=== PATIENT | female | born 1955 | race Caucasian/White ===

== ENCOUNTER 2017-02-08 10:34 | Outpatient (CLI) | payer OTHER ==
--- NOTE | 2017-02-11 09:11 | DIAGNOSTIC IMAGING REPORT ---
PROCEDURE: MG BILATERAL SCREENING W/CAD INDICATION: SCREENING, aunt with a history of breast cancer . TECHNIQUE: Bilateral CC and MLO digital views. COMPARISON: Mammograms 06/03/2014, 10/04/2007 and 02/18/2005. FINDINGS: Computer-aided detection applied. Mildly dense. Scattered dystrophic calcifications. No change. IMPRESSION: 1. Negative mammogram RESULT CODE: 1- Negative. A. A negative report should not delay biopsy if a dominant or clinically suspicious mass is present. 10-15% of cancers are not identified by x-ray. B. A negative report may reinforce clinical impression. C. Adenosis and dense breasts may obscure an underlying neoplasm. D. False positive reports average 6-10%. E.. A yearly screening mammogram is recommended. A reminder letter will be scheduled.
== END 2017-02-08 23:00 ==
LOC: MAM SRH 10:34
DX: Z12.31 Encounter for screening mammogram for malignant neoplasm of breast (principal); Z80.3 Family history of malignant neoplasm of breast